=== PATIENT | female | born 1990 | race Two or more races ===

== ENCOUNTER 2019-04-01 14:03 | Emergency (ER) | payer MEDICAID ==
[~2019-04-01] VITALS: Ht 162.6 cm; Wt 91.0 kg
[2019-04-01 15:09] VITALS: BP 122/72
== END 2019-04-01 18:20 | disposition left against medical advice (07) ==
LOC: ER 14:03
DX: Z20.2 Contact with and (suspected) exposure to infections with a predominantly sexual mode of transmission (principal); Z91.410 Personal history of adult physical and sexual abuse
CPT/HCPCS: 99281

== ENCOUNTER 2020-11-21 16:46 | Emergency (ER) | payer MEDICAID, OTHER ==
[~2020-11-21] VITALS: Ht 162.6 cm; Wt 82.0 kg
[2020-11-21] MEDS ORDERED: CLIN300C12 PO (17:15)
[2020-11-21] MEDS ORDERED: ACETAMINOPHEN 325MG TABLET PO ONE (17:15)
[2020-11-21] MEDS ORDERED: TOPUD PO (17:15)
[2020-11-21] MEDS ORDERED: LIDOCAINE HCL/PF 1% 10 MG/ML 5ML VIAL IJ ONE (17:30)
[2020-11-21] MEDS ORDERED: IBUP-2028 PO (17:56)
[2020-11-21 17:57] VITALS: BP 140/78
== END 2020-11-21 17:59 | disposition home or self-care (01) ==
LOC: ER 16:46
DX: L03.012 Cellulitis of left finger (principal); J45.909 Unspecified asthma, uncomplicated
CPT/HCPCS: 10060; 99284; J3490; Z7610